=== PATIENT | male | born 1955 | race Caucasian/White ===

== ENCOUNTER → 2020-05-27 00:07 | Outpatient (CLI) | payer MEDICARE, OTHER, SELFPAY ==
[2020-05-27 19:28] LABS: SARS-CoV-2 RNA PCR Negative
== END ==
PROVIDERS: PCP Family Medicine; Visit Provider Internal Medicine Gastroenterology
DX: Z01.812 Encounter for preprocedural laboratory examination (principal); Z20.822 Contact with and (suspected) exposure to COVID-19
CPT/HCPCS: C9803; U0003; U0005

== ENCOUNTER 2020-05-30 00:01 | Day surgery (SDC) | payer MEDICARE, OTHER, SELFPAY ==
[2020-05-16 09:22] VITALS: BMI 32.0
[2020-05-30 06:28] VITALS: BP 148/73; PULSE 61; RESP 18; TEMP 36.2; O2SAT 95; BMI 31.1
[2020-05-30] MEDS: LACTATED RINGERS 1,000 ML 150 ML IV CONT (06:40)
[2020-05-30 06:58] LABS: Glucose Point of Care 147 (65-105)
--- NOTE | 2020-05-30 07:10 | WPDANESEPP ---
Anes - Eval Pre Procedure Procedure: Operation Date: 05/30/20 07:30 Proposed Procedures p Screening Colonoscopy - Casey ShayeKaci Leblanc DO Date/Time: 05/30/20 07:10 Pre Op Diagnosis: Neoplasm Screening Patient Data Age: 65 Gender: M Height: 1.83 m Weight: 104 kg Last Vital Signs Temp 36.2 C L 05/30/20 06:28 Pulse 61 05/30/20 06:28 Resp 18 05/30/20 06:28 BP 148/73 H 05/30/20 06:28 Pulse Ox 95 05/30/20 06:28 Allergies Allergy/AdvReac Type Severity Reaction Status Date / Time adhesive tape Allergy Unknown Unknown Verified 05/30/20 06:26 Penicillins Allergy Unknown Unknown Verified 05/30/20 06:26 Home Medications Medication Instructions Recorded Confirmed Type wbztawym-ilxf-qesgy acid 400 1 tablet PO DAILY 03/07/19 05/16/20 History mcg-lycopene 300 mcg-ginkgo 120 mg tablet omega-3 acid ethyl esters 1 gram 1 cap PO BID #180 cap 03/14/19 05/16/20 Rx capsule lisinopril 10 mg tablet 10 mg PO DAILY #90 tablet 10/16/19 05/16/20 Rx pravastatin 80 mg tablet 80 mg PO DAILY #90 tablet 11/13/19 05/16/20 Rx metformin 500 mg tablet,extended 2,000 mg PO QPM #360 tablet 01/09/20 05/16/20 Rx release 24 hr levothyroxine 50 mcg tablet 50 mcg PO DAILY #90 tablet 01/25/20 05/16/20 Rx sitagliptin 100 mg tablet 100 mg PO DAILY #90 tablet 02/07/20 05/16/20 Rx blood sugar diagnostic #100 each 04/08/20 Rx fenofibrate nanocrystallized 160 160 mg PO DAILY #90 tablet 04/08/20 05/16/20 Rx mg tablet vitamin B complex [B 1 tablet PO DAILY 05/16/20 05/16/20 History Complex-Vitamin B12] Laboratory Tests 05/30/20 06:32 POC Capillary Glucose 147 mg/dl H mg/dl (65-105) Patient hx anesthesia problems: none Family hx anesthesia problems: none PMFSH Past Medical History Medical History MARILYN on CPAP Primary hypertension Type 2 diabetes mellitus Surgical History Surgical History History of radiofrequency ablation (RFA) procedure for cardiac arrhythmia Family History Family History Mother Diabetes mellitus Patient's mother is Grandparent Diabetes mellitus Father Family history of coronary artery disease Social History Social History Smoking status: Never smoker Second hand tobacco smoke exposure: No Alcohol intake: current Living arrangements: with family Spiritual care concerns: No Exam Day of Procedure 05/30/20 07:10
--- NOTE | 2020-05-30 07:19 | WPDANESEPPF ---
Anes - Initial Pre Proc Eval Procedure: Operation Date: 05/30/20 07:30 Proposed Procedures p Screening Colonoscopy - Casey Leblanc DO Date/Time: 05/30/20 07:19 Surgeon: Casey Leblanc DO Pre Op Diagnosis: Neoplasm Screening Patient Data Age: 65 Gender: M Height: 6 ft Weight: 104 kg Last Vital Signs Temp 97.2 F L 05/30/20 06:28 Pulse 61 05/30/20 06:28 Resp 18 05/30/20 06:28 BP 148/73 H 05/30/20 06:28 Pulse Ox 95 05/30/20 06:28 Allergies Allergy/AdvReac Type Severity Reaction Status Date / Time adhesive tape Allergy Unknown Unknown Verified 05/30/20 06:26 Penicillins Allergy Unknown Unknown Verified 05/30/20 06:26 Home Medications Medication Instructions Recorded Confirmed Type xvgyfiah-vmes-mxxpc acid 400 1 tablet PO DAILY 03/07/19 05/16/20 History mcg-lycopene 300 mcg-ginkgo 120 mg tablet omega-3 acid ethyl esters 1 gram 1 cap PO BID #180 cap 03/14/19 05/16/20 Rx capsule lisinopril 10 mg tablet 10 mg PO DAILY #90 tablet 10/16/19 05/16/20 Rx pravastatin 80 mg tablet 80 mg PO DAILY #90 tablet 11/13/19 05/16/20 Rx metformin 500 mg tablet,extended 2,000 mg PO QPM #360 tablet 01/09/20 05/16/20 Rx release 24 hr levothyroxine 50 mcg tablet 50 mcg PO DAILY #90 tablet 01/25/20 05/16/20 Rx sitagliptin 100 mg tablet 100 mg PO DAILY #90 tablet 02/07/20 05/16/20 Rx blood sugar diagnostic #100 each 04/08/20 Rx fenofibrate nanocrystallized 160 160 mg PO DAILY #90 tablet 04/08/20 05/16/20 Rx mg tablet vitamin B complex [B 1 tablet PO DAILY 05/16/20 05/16/20 History Complex-Vitamin B12] Laboratory Tests 05/30/20 06:32 POC Capillary Glucose 147 mg/dl H mg/dl (65-105) Patient hx anesthesia problems: none Family hx anesthesia problems: none PMFSH Past Medical History Medical History MARILYN on CPAP Primary hypertension Type 2 diabetes mellitus Surgical History Surgical History History of radiofrequency ablation (RFA) procedure for cardiac arrhythmia Family History Family History Mother Diabetes mellitus Patient's mother is Grandparent Diabetes mellitus Father Family history of coronary artery disease Social History Social History Smoking status: Never smoker Second hand tobacco smoke exposure: No Alcohol intake: current Living arrangements: with family Spiritual care concerns: No Anes - Eval Final PreProcedure Day of Procedure 05/30/20 07:19 Patient weight: overweight Heart: regular rate and rhythm Lungs: clear to auscultation Airway: Mallampati scale class III Neurological: alert and oriented Last oral intake: >/= 8 hours ASA classification: III Emergent: no Anesthetic plan: proceed Anesthesia type and monitoring: general GIVS and standard monitoring Informed Consent: The patient's anesthetic plan and its attendant risks and benefits were discussed with the patient/family/POA. Questions were solicited and answers provided to the satisfaction of the patient/family/POA.
--- NOTE | 2020-05-30 07:26 | WPDGICN ---
GI Consult Note Consult date/time: 05/30/20 07:26 HPI: Reason for visit is colonoscopy. This very pleasant gentleman seen in consultation at the request of the primary physician. Impression : Colon cancer screening. DM. HTN. HLD. Cardiac dysrhythmia status post ablation. Peripheral neuropathy. MARILYN. Obesity. Hypothyroidism. Recommendation: Colonoscopy. History: This very pleasant gentleman is here for Screening colonoscopy. The GI review system was unremarkable. His last colonoscopy was 15 years ago. The patient does complain of some paresthesias of the lower extremity. He has history of obstructive sleep apnea. Physical examination: General: very pleasant patient in no acute distress. HEENT: Head was normocephalic sclerae is clear mouth without masses neck was supple. Heart: Rate rhythm regular without S3 or S4. Lungs: CTA. Abdomen: Soft with no guarding or rigidity. Bowel sounds were active. Neurologic: Cranial nerves 2 through 12 intact. No focal defects. No clonus. Musculoskeletal system: Revealed no joint tenderness or swelling no muscle atrophy. Extremities: Reveal no significant edema. Skin: Warm and dry with normal turgor. Mental status: intact. Patient is alert and oriented. Review of Systems Review of Systems: All systems reviewed & are unremarkable except as noted in HPI and below PMFSH Past Medical History Medical History MARILYN on CPAP Primary hypertension Type 2 diabetes mellitus Surgical History Surgical History (Updated 05/30/20 @ 07:26 by Casey Leblanc DO) H/O colonoscopy History of radiofrequency ablation (RFA) procedure for cardiac arrhythmia Family History Family History Mother Diabetes mellitus Patient's mother is Grandparent Diabetes mellitus Father Family history of coronary artery disease Social History Social History Smoking status: Never smoker Second hand tobacco smoke exposure: No Alcohol intake: current Living arrangements: with family Spiritual care concerns: No Meds Home Medications and Allergies Home Medications Medication Instructions Recorded Confirmed Type xgvqzysd-cxmn-kfmto acid 400 1 tablet PO DAILY 03/07/19 05/16/20 History mcg-lycopene 300 mcg-ginkgo 120 mg tablet omega-3 acid ethyl esters 1 gram 1 cap PO BID #180 cap 03/14/19 05/16/20 Rx capsule lisinopril 10 mg tablet 10 mg PO DAILY #90 tablet 10/16/19 05/16/20 Rx pravastatin 80 mg tablet 80 mg PO DAILY #90 tablet 11/13/19 05/16/20 Rx metformin 500 mg tablet,extended 2,000 mg PO QPM #360 tablet 01/09/20 05/16/20 Rx release 24 hr levothyroxine 50 mcg tablet 50 mcg PO DAILY #90 tablet 01/25/20 05/16/20 Rx sitagliptin 100 mg tablet 100 mg PO DAILY #90 tablet 02/07/20 05/16/20 Rx blood sugar diagnostic #100 each 04/08/20 Rx fenofibrate nanocrystallized 160 160 mg PO DAILY #90 tablet 04/08/20 05/16/20 Rx mg tablet vitamin B complex [B 1 tablet PO DAILY 05/16/20 05/16/20 History Complex-Vitamin B12] Allergies Allergy/AdvReac Type Severity Reaction Status Date / Time adhesive tape Allergy Unknown Unknown Verified 05/30/20 06:26 Penicillins Allergy Unknown Unknown Verified 05/30/20 06:26 Vital Signs Vital Signs - 24 hr 05/30/20 06:28 Temperature 36.2 C L Pulse Rate 61 Respiratory Rate 18 Blood Pressure 148/73 H Pulse Oximetry 95
[2020-05-30 08:08] VITALS: BP 133/98; PULSE 65; RESP 18; O2SAT 96
[2020-05-30 08:18] VITALS: BP 105/51; PULSE 61; RESP 20; O2SAT 95
[2020-05-30 08:28] VITALS: BP 103/68; PULSE 61; RESP 18; O2SAT 97
== END 2020-05-30 08:48 | disposition home or self-care (01) ==
PROVIDERS: PCP Physician Assistant; Visit Provider Internal Medicine Gastroenterology
PROC: 0DJD8ZZ Inspection of Lower Intestinal Tract, Via Natural or Artificial Opening Endoscopic (ICD-10-PCS; CPT 45378; principal; 2020-05-30 07:30)
DX: Z12.11 Encounter for screening for malignant neoplasm of colon (principal); D12.3 Benign neoplasm of transverse colon; K63.5 Polyp of colon; K57.30 Diverticulosis of large intestine without perforation or abscess without bleeding; K64.8 Other hemorrhoids; G47.33 Obstructive sleep apnea (adult) (pediatric); I10 Essential (primary) hypertension; E11.9 Type 2 diabetes mellitus without complications; Z79.84 Long term (current) use of oral hypoglycemic drugs
CPT/HCPCS: 45380; 45385; 88305; J2704; J7120

== ENCOUNTER 2021-09-04 14:04 | Outpatient (CLI) | payer MEDICARE, OTHER, SELFPAY ==
--- NOTE | 2021-09-04 14:17 | ECG_ITS ---
Measurements Intervals [place] Rate: 88 P: TN: 0 QRS: 24 QRSD: 93 T: 34 QT: 329 QTc: 399 Interpretive Statements ATRIAL FIBRILLATION EARLY PRECORDIAL R/S TRANSITION BORDERLINE ST-T WAVE ABNORMALITY- INF/HIGH LAT LEADS BASELINE WANDER- V2 ABNORMAL ECG Electronically Signed On 09-04-2021 14:35:37 CDT by Ameya Herrera D.O.
== END 2021-09-04 14:05 | disposition home or self-care (01) ==
LOC: ANHCARD 14:10
PROVIDERS: PCP Family Medicine
DX: I48.19 Other persistent atrial fibrillation (principal); R94.31 Abnormal electrocardiogram [ECG] [EKG]
CPT/HCPCS: 93005

== ENCOUNTER 2021-11-20 00:33 | Emergency (ER) | payer MEDICARE, OTHER, SELFPAY ==
[2021-11-20] VITALS (7 sets, daily range): BP systolic 107–127; BP diastolic 71–86; PULSE 79–85; RESP 16–26; O2SAT 91–98
--- NOTE | ~2021-11-20 | CT_ITS ---
EXAMINATION: CT abdomen pelvis w con DATE: 11/20/2021 03:05 INDICATION: Left groin pain. Left inguinal hernia. TECHNIQUE: Computed tomography (CT) of the abdomen and pelvis was performed with 100 mL Omnipaque 350 intravenous contrast. Automated exposure control and iterative reconstruction technique were employe d. The dose-length product was 2171.17 mGy-cm. COMPARISON: CT abdomen 05/24/2004 FINDINGS: There is marked in elevation of left hemidiaphragm, new from 05/24/2004. There is mild atelec tasis bilaterally. A calcified right lung nodule and calcified right hilar lymph nodes are consistent with old granulomatous disease. There is a 6 mm nodule in right lower lobe. There is left atrial enl argement of the heart. There are coronary artery calcifications. No pericardial effusion. There are c ysts in the liver measuring up to 11 mm. The spleen, pancreas, gallbladder, adrenal glands, and right kidney are normal. There are cysts in left kidney measuring up to 17 mm. There are diverticula of th e duodenum. There are bilateral inguinal hernias containing fat. There is diverticulosis of the colon without evidence of diverticulitis. There is a small sliding hiatal hernia. The appendix is not visu alized. There are multiple dilated loops of small bowel without focal transition point, consistent wi th adynamic ileus. There is trace pelvic ascites. There are no pathologically enlarged lymph nodes. T here are chronic bilateral L5 pars defects. There is 5 mm anterolisthesis of L5 on S1. There is mild thoracic spondylosis and moderate lumbar spondylosis. IMPRESSION: 1. Bilateral inguinal hernias containing fat. 2. Dilated small bowel, likely adynamic ileus. 3. Marked elevation of left hemidiaphragm, new from 05/24/2004. 4. Small sliding hiatal hernia. Reviewed, dictated and finalized at location A.
[2021-11-20] MEDS: HYDROmorphone HCL INJ (*CRX) 1 MG/ML SYR (00:51)
--- NOTE | 2021-11-20 00:57 | ED.GENADULT ---
HPI - General Adult General Chief complaint: Abdominal Pain Stated complaint: GROIN, ABD, TESTICLE PAIN Time Seen by Provider: 11/20/21 00:39 History of Present Illness HPI narrative: 66-year-old male presented the emergency department for evaluation of cute onset of left groin pain. Patient states he had been using the restroom and states he had been bearing down fairly intensively and when he stood up he felt an intense pain in his left groin that caused him to have nausea and vomiting. Patient did call EMS for the pain and was found to have a left inguinal hernia. Related Data Home Medications Medication Instructions Recorded Confirmed jjtojael-waou-cntpn acid 400 1 tablet PO DAILY 03/07/19 10/14/21 mcg-lycopene 300 mcg-ginkgo 120 mg tablet (One-A-Day Men's 50 Plus (with ginkgo)) vitamin B complex (B 1 tablet PO DAILY 05/16/20 10/14/21 Complex-Vitamin B12 tablet) psyllium husk 3.4 gram/5.4 gram 1 tbsp PO DAILY 09/11/20 10/14/21 oral powder (Metamucil) Allergies Allergy/AdvReac Type Severity Reaction Status Date / Time adhesive tape Allergy Unknown Unknown Verified 10/14/21 08:36 Penicillins Allergy Unknown Unknown Verified 10/14/21 08:36 Review of Systems Review of Systems: CONSTITUTIONAL: Denies fever, chills, or sweats. EYES: Denies visual changes, redness, or discharge. ENT: Denies rhinorrhea, congestion, sore throat, or otalgia. CARDIOVASCULAR: Denies chest pain, palpitations, or edema. RESPIRATORY: Denies cough or dyspnea. GASTROINTESTINAL: Left sided abdominal pain GENITOURINARY: Denies dysuria or hematuria. SKIN: Denies rash or itching. MUSCULOSKELETAL: Denies back pain, joint pain, or myalgia. NEUROLOGIC: Denies headache, numbness, or weakness. PSYCHIATRIC: Denies anxiety or depression. [facility] Past Medical History Medical History A-fib Acute otitis externa of left ear Acute otitis externa of right ear Atopic dermatitis MARILYN on CPAP Primary hypertension Type 2 diabetes mellitus Surgical History Surgical History H/O colonoscopy History of radiofrequency ablation (RFA) procedure for cardiac arrhythmia Family History Family History Mother Diabetes mellitus Patient's mother is Grandparent Diabetes mellitus Father Family history of coronary artery disease Social History Social History Smoking status: Never smoker Second hand tobacco smoke exposure: No Alcohol intake: current Drinks per week: 21 Alcohol use details: 3 glasses wine with dinner every evening. Substance use: never Substance use type: does not use Spiritual care concerns: No Exam Narrative: APPEARANCE: Well appearing, no pain, no distress, well-nourished. HEAD: normocephalic, atraumatic. EYES: PERRLA/EOMI, conjunctivae clear. NOSE: Normal no drainage NECK: Supple. No adenopathy, no masses. RESPIRATORY: Airway patent, respirations nonlabored. Clear to auscultation bilaterally, no rales, rhonchi, wheezing. CARDIOVASCULAR: Regular rate and rhythm without murmurs rubs or gallops. ABDOMINAL: Abdomen is soft nontender nondistended. Patient had a large amount of bowel and his left inguinal hernia this was able to be reduced. MUSCULOSKELETAL: Moves all extremities. Strength/ROM intact, No edema, No calf tenderness. NEURO: Alert. Cranial nerves II through XII intact. Good gait. Good coordination SKIN: Warm, dry. Normal Color Course Course Emergency Course: Patient's left inguinal hernia was successfully reduced. Patient was comfortable with the plan for discharge to home. Patient was encouraged to have close follow-up with surgery as an outpatient. Patient was educated on how to reduce the hernia at home and on reasons to return to the emerge
[2021-11-20 02:09] LABS: Basophils Absolute Auto 0.1 K/mm3 (0.0-0.1); Basophils Percent Auto 0.7 % (0.2-1.2); Eosinophils Absolute Auto 0.1 K/mm3 (0-0.3); Eosinophils Percent Auto 0.6 % (0-4.4); Hematocrit 38.1 % (42.0-52.0); Hemoglobin 12.8 g/dL (14.0-18.0); Immature Granulocyte Absolute 0.07 K/mm3 (0.00-0.031); Immature Granulocyte Percent A 0.6 % (0-0.5); Lymphocytes Absolute Auto 0.98 K/mm3 (0.9-3.2); Lymphocytes Percent Auto 8.2 % (18.3-44.2); Mean Corpuscular HGB Conc 33.6 g/dl (32-36); Mean Corpuscular Hemoglobin 31.8 pg (26-34); Mean Corpuscular Volume 94.5 fl (80-100); Mean Platelet Volume 8.9 fl (7.4-10.4); Monocytes Absolute Auto 0.6 K/mm3 (0.1-0.6); Monocytes Percent Auto 5.1 % (2.6-8.5); Neutrophils Absolute Auto 10.1 K/mm3 (1.3-6.7); Neutrophils Percent Auto 84.8 % (45.5-73.1); Platelet Count Result 277 k/mm3 (150-375); Red Blood Count 4.03 M/mm3 (4.6-6.20); Red Cell Distribution Width 12.8 % (11.5-14.5); White Blood Count 11.9 K/mm3 (4.5-10.0)
[2021-11-20 02:19] LABS: Lactic Acid Reflex 1.2 mmol/L (0.7-2.0)
[2021-11-20 02:20] LABS: Alanine Aminotransferase 24 U/L (6-50); Albumin Level 4.5 g/dL (3.5-5.1); Alkaline Phosphatase 71 U/L (38-126); Anion Gap 8 mmol/L (8-16); Aspartate Amino Transferase 34 U/L (17-59); Bilirubin,Total 0.3 mg/dL (0.2-1.3); Blood Urea Nitrogen 19 mg/dL (9-20); Carbon Dioxide 27 mmol/L (22-30); Chloride 101 mmol/L (98-107); Estimated CRCL calculation 59 ml/min; Estimated Glomerular Filt Rate > 60; Glucose 167 mg/dL (65-110); Potassium 4.3 mmol/L (3.4-5.0); Sodium 136 mmol/L (137-145)
--- NOTE | 2021-11-20 03:01 | PC.NURSE ---
Currently out of department in CT scan
--- NOTE | 2021-11-20 03:50 | PC.NURSE ---
Ambulated in [address] with RN with steady gait and no c/o pain. Dr Covarrubias notified.
== END 2021-11-20 03:56 | disposition home or self-care (01) ==
PROVIDERS: Emergency Provider Emergency Medicine; PCP Family Medicine
DX: K40.90 Unilateral inguinal hernia, without obstruction or gangrene, not specified as recurrent (principal); I48.91 Unspecified atrial fibrillation; E11.9 Type 2 diabetes mellitus without complications; G47.33 Obstructive sleep apnea (adult) (pediatric); K57.90 Diverticulosis of intestine, part unspecified, without perforation or abscess without bleeding; Z79.84 Long term (current) use of oral hypoglycemic drugs
CPT/HCPCS: 36415; 74177; 80053; 83605; 85025; 96374; 99284; J1170; Q9967

== ENCOUNTER 2022-02-03 09:07 | Outpatient (CLI) | payer MEDICARE, OTHER, SELFPAY ==
[2022-02-03 09:57] LABS: Anion Gap 5 mmol/L (8-16); Blood Urea Nitrogen 15 mg/dL (9-20); Calcium 9.2 mg/dL (8.4-10.2); Carbon Dioxide 30 mmol/L (22-30); Chloride 105 mmol/L (98-107); Estimated Glomerular Filt Rate > 60; Glucose 130 mg/dL (65-110); Potassium 4.3 mmol/L (3.4-5.0); Sodium 140 mmol/L (137-145)
== END 2022-02-03 09:08 | disposition home or self-care (01) ==
PROVIDERS: Anesthesiology; PCP Family Medicine; Visit Provider Surgery
DX: E11.9 Type 2 diabetes mellitus without complications (principal); Z01.818 Encounter for other preprocedural examination
CPT/HCPCS: 36415; 80048

== ENCOUNTER 2022-02-05 02:08 | Day surgery (SDC) | payer MEDICARE, OTHER, SELFPAY ==
[2022-01-22 14:33] VITALS: BMI 30.5
--- NOTE | 2022-01-22 14:50 | PC.NURSE ---
PRE-OP INSTRUCTIONS, PLEASE READ CAREFULLY Report to the Outpatient Waiting Room, entrance under the green pavilion located off [facility], at time _1000_ on date _02/05/22_. Planned Procedure Time: _1200_. Time changes happen often and if your time is changed the preop area will call you the afternoon before. - You and your visitor will be asked to self-screen and do not enter if you have any COVID symptoms. - Only one visitor is requested with a max of two and NO children visitors are allowed at this time. - The patient visitor may be requested to leave or wait in car when not with patient due to distancing restrictions. - A mask is optional within the hospital. Patients may have clear liquids (water, carbonated beverages, clear teas, apple juice) until 3 hours prior to surgery (0900 AM) with a maximum of 20 ounces. - No food from midnight until time of surgery Take the following medications with a SIP of water the morning of surgery: _LEVOTHYROXINE_ Medications to discontinue per DR. HUTSON - _XARELTO 2 DAYS PRIOR TO SURGERY, Date to take last dose 02/02/22_ Medications to discontinue per ANESTHESIA - MULTI VIT, VIT B COMPLEX, OMEGA 3 - 3 DAYS PRIOR TO SURGERY, Date to take last dose 02/01/22_ Please no deodorant, or body powder the day of surgery. No jewelry (including any body piercings) or valuables the day of surgery, leave them at home. Please take a shower or bath the night before, or the morning of, surgery with an antibacterial soap. Wear comfortable, loose fitting clothing. - Jewelry must be removed prior to entering the operating room. Rings and piercings that are not removed may be cut off. - The hospital will not accept responsibility for valuables. - Please leave all valuables, including medications, at home the day of surgery. If you are going home after surgery, a licensed sales route driver helper must drive you home. - NO public transportation without another adult if you receive anesthesia. - We recommend that an adult stay with you for 24 hours following discharge. - We also recommend that you do not drive, make important decision, drink alcoholic beverages, or take any drugs that were not prescribed by your health care provider for at least 24 hours after your discharge time. Follow any additional instructions given to you from your surgeon. If you or anyone in your household have experienced Covid symptoms in the past week, please notify your surgeon or the nurse liaison at the phone number below for possible testing. Telephone instructions given to ____PT and asked if any additional questions and then verbalized understanding. Patient advised to call surgeon office or pre surgery nurse liaison [phone] if any additional questions.
--- NOTE | 2022-02-03 09:51 | PM.SD2 ---
Same Day Admit/Disch: HPI History of Present Illness Chief complaint: incarcerated left inguinal hernia,umbilical hernia Narrative: Jeffrey Dong is a 66 year old male Who presented to the emergency room in late October with a large painful bulge in the left groin. He was found to have an incarcerated left inguinal hernia. This was able to be reduced by the emergency room physician. He has been stable since then. He was seen in the office and found to have a left inguinal hernia as well as an umbilical hernia. He is taken to surgery now for repair of both of these hernias. Patient has history of atrial fibrillation and was to have a cardiac ablation on 12/15/2021. The results of that are pending at the time of this dictation. [facility] Past Medical History Medical History A-fib Acute otitis externa of left ear Acute otitis externa of right ear Atopic dermatitis MARILYN on CPAP Primary hypertension Type 2 diabetes mellitus Surgical History Surgical History H/O colonoscopy History of radiofrequency ablation (RFA) procedure for cardiac arrhythmia Family History Family History Mother Diabetes mellitus Patient's mother is Grandparent Diabetes mellitus Father Family history of coronary artery disease Social History Social History Smoking status: Never smoker Second hand tobacco smoke exposure: No Alcohol intake: current Drinks per week: 21 Alcohol use details: 3 glasses wine with dinner every evening. Substance use: never Substance use type: does not use Living arrangements: with family Spiritual care concerns: No Same Day Admit/Disch: Med Pre-admit Medications Home Medications Medication Instructions Recorded Confirmed Type fyuhrzqp-espy-nlizh acid 400 1 tablet PO DAILY 03/07/19 02/05/22 History mcg-lycopene 300 mcg-ginkgo 120 mg tablet (One-A-Day Men's 50 Plus (with ginkgo)) vitamin B complex (B 1 tablet PO DAILY 05/16/20 02/05/22 History Complex-Vitamin B12 tablet) psyllium husk 3.4 gram/5.4 gram 1 tbsp PO DAILY 09/11/20 02/05/22 History oral powder (Metamucil) levothyroxine 50 mcg tablet 50 mcg PO DAILY #90 tabs 04/07/21 02/05/22 Rx blood sugar diagnostic (Accu-Chek #100 ea 05/23/21 02/05/22 Rx Lalitha Plus test strips) fenofibrate nanocrystallized 160 160 mg PO DAILY #90 tabs 08/11/21 02/05/22 Rx mg tablet lisinopril 10 mg tablet 10 mg PO DAILY #90 tabs 09/22/21 02/05/22 Rx rivaroxaban 20 mg tablet (Xarelto) 20 mg PO DAILY 11/21/21 02/05/22 History polyethylene glycol 3350 17 17 g PO DAILY 12/11/21 02/05/22 History gram/dose oral powder (Miralax) omega-3 acid ethyl esters 1 gram 1 cap PO BID #180 caps 01/01/22 02/05/22 Rx capsule pravastatin 80 mg tablet See Rx Instructions .Route 01/18/22 02/05/22 Rx .COMPLEX #90 tabs sitagliptin phosphate 100 mg See Rx Instructions .Route 01/18/22 02/05/22 Rx tablet (Januvia) .COMPLEX #90 tabs metformin 500 mg tablet,extended 1,000 mg PO QPM 01/22/22 02/05/22 History release 24 hr hydrocodone 5 mg-acetaminophen 325 1 - 2 tablet PO Q6H PRN pain #25 02/05/22 Rx mg tablet tabs ibuprofen 600 mg tablet 600 mg PO Q6H PRN pain #14 tabs 02/05/22 Rx Exam Const: General: comfortable, no acute distress, alert and awake HENMT: Head: normocephalic and atraumatic Mouth: Yes Normal oral and palatal mucosa present Eyes: Conjunctivae: conjunctivae normal Pupils: Equal, round and reactive pupils present EOM: EOMs intact bilaterally Neck: Neck: normal visual inspection, no lymphadenopathy and nontender Resp: Effort & Inspection: normal respiratory effort Auscultation: clear to auscultation bilaterally Cardio: Rate: regular rate Rhythm: regular rhythm
[2022-02-05] VITALS (9 sets, daily range): BP systolic 115–135; BP diastolic 55–64; PULSE 45–51; RESP 14–18; TEMP 36.2–36.3; O2SAT 93–99
[2022-02-05 10:29] LABS: Glucose Point of Care 119 mg/dl (65-105)
[2022-02-05] MEDS: LACTATED RINGERS 1,000 ML 30 ML IV CONT ×2 (10:30→16:10)
[2022-02-05] MEDS: ACETAMINOPHEN 500 MG TABLET 1000 MG PO (10:48)
[2022-02-05] MEDS: KETOROLAC 15 MG/ML VIAL (*BKC) IV PUSH (10:48)
--- NOTE | 2022-02-05 11:09 | WPDANESEPPF ---
Anes - Initial Pre Proc Eval Procedure: Operation Date: 02/05/22 12:00 Proposed Procedures p Repair of Incarcerated Left Inguinal Hernia, - Rafita Curry MD s Umbilical Hernia Repair with Mesh - Rafita Curry MD Date/Time: 02/05/22 11:09 Surgeon: Rafita Curry MD Pre Op Diagnosis: incarcerated left inguinal hernia,umbilical hernia Patient Data Age: 66 Gender: M Height: 1.83 m Weight: 97.6 kg Last Vital Signs Temp 36.2 C L 02/05/22 10:00 Pulse 51 L 02/05/22 10:00 Resp 14 02/05/22 10:00 BP 118/57 L 02/05/22 10:00 Pulse Ox 99 02/05/22 10:00 O2 Del Method Room Air 02/05/22 10:00 Allergies Allergy/AdvReac Type Severity Reaction Status Date / Time adhesive tape Allergy Mild Hives Verified 02/05/22 10:41 Penicillins Allergy Mild Hives Verified 02/05/22 10:41 Home Medications Medication Instructions Recorded Confirmed Type tzbjhxtk-ghdk-cbrzx acid 400 1 tablet PO DAILY 03/07/19 02/05/22 History mcg-lycopene 300 mcg-ginkgo 120 mg tablet (One-A-Day Men's 50 Plus (with ginkgo)) vitamin B complex (B 1 tablet PO DAILY 05/16/20 02/05/22 History Complex-Vitamin B12 tablet) psyllium husk 3.4 gram/5.4 gram 1 tbsp PO DAILY 09/11/20 02/05/22 History oral powder (Metamucil) levothyroxine 50 mcg tablet 50 mcg PO DAILY #90 tabs 04/07/21 02/05/22 Rx blood sugar diagnostic (Accu-Chek #100 ea 05/23/21 02/05/22 Rx Lalitha Plus test strips) fenofibrate nanocrystallized 160 160 mg PO DAILY #90 tabs 08/11/21 02/05/22 Rx mg tablet lisinopril 10 mg tablet 10 mg PO DAILY #90 tabs 09/22/21 02/05/22 Rx rivaroxaban 20 mg tablet (Xarelto) 20 mg PO DAILY 11/21/21 02/05/22 History polyethylene glycol 3350 17 17 g PO DAILY 12/11/21 02/05/22 History gram/dose oral powder (Miralax) omega-3 acid ethyl esters 1 gram 1 cap PO BID #180 caps 01/01/22 02/05/22 Rx capsule pravastatin 80 mg tablet See Rx Instructions .Route 01/18/22 02/05/22 Rx .COMPLEX #90 tabs sitagliptin phosphate 100 mg See Rx Instructions .Route 01/18/22 02/05/22 Rx tablet (Januvia) .COMPLEX #90 tabs metformin 500 mg tablet,extended 1,000 mg PO QPM 01/22/22 02/05/22 History release 24 hr Laboratory Tests 02/05/22 10:25 POC Capillary Glucose 119 mg/dl H mg/dl (65-105) Patient hx anesthesia problems: none Family hx anesthesia problems: other (father hallucinations) Results Review: All pre-operative results and documents have been reviewed as part of the pre-operative evaluation. FORMERLY [facility] Past Medical History Medical History A-fib Acute otitis externa of left ear Acute otitis externa of right ear Atopic dermatitis MARILYN on CPAP Primary hypertension Type 2 diabetes mellitus Surgical History Surgical History H/O colonoscopy History of radiofrequency ablation (RFA) procedure for cardiac arrhythmia Family History Family History Mother Diabetes mellitus Patient's mother is Grandparent Diabetes mellitus Father Family history of coronary artery disease Social History Social History Smoking status: Never smoker Second hand tobacco smoke exposure: No Alcohol intake: current Drinks per week: 21 Alcohol use details: 3 glasses wine with dinner every evening. Substance use: never Substance use type: does not use Living arrangements: with family Spiritual care concerns: No Anes - Eval Final PreProcedure Day of Procedure 02/05/22 11:09 Patient weight: overweight Heart: regular rate and rhythm Lungs: clear to auscultation Airway: Mallampati scale Neurological: alert and oriented Last oral intake: >/= 8 hours ASA classification: III Emergent: no Anesthetic plan: proceed Anesthesia type and monitoring
--- NOTE | 2022-02-05 12:09 | WPDHPUPDATE1 ---
History and Physical Update Update Date/Time: 02/05/22 12:09 History and Physical has been reviewed, including an updated exam of the patient. There are NO changes in the patient's condition. Risks, benefits, and alternatives have been discussed and questions answered. Patient agrees to proceed with procedure.
[2022-02-05] MEDS: ceFAZolin 2 GM/D5W 50 ML 2 GM/50 ML BAG IVPB (12:18)
[2022-02-05] MEDS: BUPIVACAINE/EPINEPHRINE 0.5% 10 ML VIAL 60 ML INFILTRATE (13:29)
[2022-02-05] MEDS: BUPIVACAINE/EPINEPHRINE 0.5% 10 ML VIAL 20 ML INFILTRATE (13:34)
[2022-02-05 14:56] LABS: Glucose Point of Care 112 mg/dl (65-105)
--- NOTE | 2022-02-05 15:57 | W.PM.PROC2 ---
Procedure Note - Detailed Date of Procedure 02/05/22 Pre-op Diagnosis left inguinal hernia,umbilical hernia Post-op Diagnosis Other (Sliding left inguinal hernia, umbilical hernia) Procedure Performed Repair umbilical hernia with a 6.[address] underlay mesh, repair sliding left inguinal hernia with extra-large PerFix Light plug and patch Surgeon Rafita Curry MD [employer] Deann Martin [employer] Anesthesia General (General LMA) and Local (0.5% bupivacaine with epinephrine) Indications Patient presented to the emergency room with a painful bulge in left groin found to be an incarcerated left inguinal hernia. This was able to be reduced in the emergency room. He was seen in the office. The patient has not had further problems with incarcerated hernia but did have a large left inguinal hernia as well as an umbilical hernia. After discussion he is taken to surgery now for repair of both the umbilical hernia and the left inguinal hernia with mesh. Findings The umbilical hernia was a 1.5 cm defect. There was no bowel involvement. 6.4 cm mesh was used in the underlay position. The left inguinal hernia was a sliding hernia with sigmoid colon forming the medial wall of the hernia sac. There was no direct hernia. Description of Procedure Patient was taken to surgery and initially IV sedation was used. He was having a lot of abdominal breathing and eventually this was converted to general per LMA. The abdomen genitalia and left groin were prepped and draped. We started with the umbilical hernia. The proposed incision was marked on the skin. It was on the inferior margin of the umbilicus. Local was infiltrated into the skin and the subcutaneous. Incision was made dissection was carried down through the subcutaneous. Crossing veins were cauterized and divided. We dissected down to the umbilical hernia. We dissected further down to the fascia and then dissected around the hernia sac circumferentially. I then infiltrated additional local into the fascia. I divided the hernia sac at its neck. I excised the hernia sac from the umbilical skin. Some fatty to tissue in the hernia was also excised. These tissues were all the discarded. I then put a finger in the abdomen. There was some properitoneal fat the area but no additional hurt his or any bowel adhesions. I slightly enlarged the hernia defect so the mesh would fit and I could free the properitoneal fat from the undersurface of the fascia. Once this was performed, I chose a 6.[address] mesh. It was placed in the defect and centered appropriately. I then placed cranial and caudal transfascial sutures. These sutures were placed in such a fashion that they juan pablo the edges of the hernia defect towards 1 another. I then placed juoofg-[id number] mattress sutures to close the hernia defect. Each of these sutures incorporated bit of mesh as well. The repair looked quite good. I infiltrated additional local all around the area of repair. I then sutured the umbilical skin to the fascia with 3-0 Vicryl suture. Some subcutaneous 3-0 Vicryl sutures were placed as well. The skin was closed with interrupted 4-0 and 3-0 subcuticular Vicryl suture. Finally the skin was closed with a running 4-0 Monocryl skin suture. This wound was then quarantined and we turned our attention to the left groin. I marked a left inguinal incision on the patient's skin. I infiltrated local into the skin and the subcutaneous. Incision was made dissection was carried down through the subcutaneous. We dissected through Sriram's fascia. Cautery was used for hemostasis. I encountered the hernia as it exited the external ring. The hernia was quite large. I needed a longer incision. I infiltrated additional local lateral to the previous incision and then extended the incision laterally about 3 cm. Cautery was used for hemostasis and I then dissected through the subcutaneous down to the external oblique aponeurosis. I was no
[2022-02-05] MEDS: oxyCODONE HCL (*CRX) 5 MG TAB IR PO (16:28)
--- NOTE | 2022-02-05 17:09 | SUR.PHASEII ---
1650 VOIDED WITH NORMAL STREAM.
== END 2022-02-05 17:24 | disposition home or self-care (01) ==
PROVIDERS: PCP Family Medicine; Visit Provider Surgery
PROC: (CPT 49525; principal; 2022-02-05 12:00)
PROC: (CPT 49525; 2022-02-05 12:00)
DX: K40.90 Unilateral inguinal hernia, without obstruction or gangrene, not specified as recurrent (principal); K42.9 Umbilical hernia without obstruction or gangrene; I10 Essential (primary) hypertension; E11.9 Type 2 diabetes mellitus without complications; G47.33 Obstructive sleep apnea (adult) (pediatric); Z79.84 Long term (current) use of oral hypoglycemic drugs
CPT/HCPCS: 49525; 49585; 82948; A9270; C1781; J0690; J1170; J1885; J2250; J2405; J2704; J3010; J7120

== ENCOUNTER 2022-05-06 12:39 | Outpatient (CLI) | payer MEDICARE, OTHER, SELFPAY | END 2022-05-06 12:40 | disposition home or self-care (01) | PROVIDERS: PCP Family Medicine; Visit Provider Family Medicine | DX: H90.3 Sensorineural hearing loss, bilateral (principal) | CPT/HCPCS: 92557; 92567 ==

== ENCOUNTER 2022-06-11 14:00 | Outpatient (RCR) | payer MEDICARE, OTHER, SELFPAY | END 2022-06-11 14:21 | disposition other institution (70) | LOC: ANHAUDASC 14:00 | PROVIDERS: PCP Family Medicine; Visit Provider Family Medicine | DX: Z46.1 Encounter for fitting and adjustment of hearing aid (principal) | CPT/HCPCS: 99199; V5261 ==

== ENCOUNTER 2023-12-17 12:29 | Outpatient (CLI) | payer MEDICARE, OTHER, SELFPAY ==
--- NOTE | ~2023-12-17 | US_ITS ---
EXAMINATION: US renal BI DATE: 12/17/2023 12:44 INDICATION: Disorder of kidney and ureter, unspecified. TECHNIQUE: Multiple ultrasound grayscale images of the kidneys were obtained. COMPARISON: CT 11/20/2021 FINDINGS: The right kidney measures 11.7 x 5.5 x 5.8 cm. The left kidney measures 10.6 x 5.2 x 6.6 cm. The kidn eys demonstrate normal parenchymal echogenicity. There is no hydronephrosis. The bladder is normal. IMPRESSION: 1. Normal kidneys. No hydronephrosis. Reviewed, dictated and finalized at location A.
== END 2023-12-17 12:30 | disposition home or self-care (01) ==
LOC: GOSHIMG 12:29
PROVIDERS: PCP Family Medicine; Visit Provider Student in an Organized Health Care Education/Training Program
DX: N28.9 Disorder of kidney and ureter, unspecified (principal)
CPT/HCPCS: 76775